=== PATIENT | female | born 1985 | race Two or more races ===

== ENCOUNTER 2022-05-24 08:50 | Emergency (ER) | payer MEDICAID, OTHER ==
[~2022-05-24] VITALS: Ht 162.6 cm; Wt 70.0 kg
[~2022-05-24 08:50] MED LIST: PREN-96 PO
[2022-05-24 11:05] VITALS: BP 113/61
[2022-05-24] MEDS ORDERED: ACETAMINOPHEN 500 MG TAB PO ONE (11:30)
[2022-05-24] MEDS ORDERED: HYDR-4902 PO (11:45)
[2022-05-24] MEDS ORDERED: CYCL1POW25 PO (13:42)
[2022-05-24] MEDS ORDERED: IBUP600T28 PO (13:42)
== END 2022-05-24 14:30 | disposition home or self-care (01) ==
LOC: EDBD 08:50 → ER 08:50
DX: S16.1XXA Strain of muscle, fascia and tendon at neck level, initial encounter (principal); S29.012A Strain of muscle and tendon of back wall of thorax, initial encounter; S20.211A Contusion of right front wall of thorax, initial encounter; Z91.018 Allergy to other foods; V43.52XA Car driver injured in collision with other type car in traffic accident, initial encounter; Y93.89 Activity, other specified; Y92.410 Unspecified street and highway as the place of occurrence of the external cause; Y99.8 Other external cause status
CPT/HCPCS: 71046; 72070; 72100; 72125; 73130; 81025